=== PATIENT | female | born 1940 | race African-American/Black ===

== ENCOUNTER 2022-07-25 18:55 | Emergency (ER) | payer OTHER ==
[~2022-07-25] VITALS: Ht 172.7 cm; Wt 100.0 kg
[2022-07-25] MEDS ORDERED: HYDROMORPHONE HCL/PF 2MG/ML CPJ IV ONE (20:15)
[2022-07-25 20:44] LABS: BASOPHILS % 0.4 % (0.0-2.0); EOSINOPHILS % 1.4 % (0.0-5.0); HEMATOCRIT. 31.9 % (36.0-48.0); HEMOGLOBIN. 10.6 g/dL (12.0-16.0); LYMPHOCYTES % 23.6 % (20.0-50.0); MEAN CORPUSCULAR HEMOGLOBIN 30.4 pg (28.0-32.0); MEAN CORPUSCULAR VOLUME 91.6 fL (81.0-99.0); MEAN PLATELET VOLUME 7.5 fl (7.4-10.4); MONOCYTES % 5.6 % (2.0-8.0); PLATELET 291 x1000/uL (130-400); RED BLOOD CELL COUNT 3.48 mill/uL (4.2-5.4); RED CELL DISTRIBUTION WIDTH 14.4 % (11.6-14.6)
[2022-07-25 20:53] LABS: PROTHROMBIN TIME 11.2 sec (9.6-11.0)
[2022-07-25 20:54] LABS: CHLORIDE 106 mEq/L (98-107)
[2022-07-26] MEDS ORDERED: IOHEXOL-350 100 ML BOTTLE ONE (00:19)
[2022-07-26] MEDS ORDERED: ASPIRIN 325MG TABLET PO ONE (01:30)
[2022-07-26] MEDS ORDERED: ASPIRIN 325MG TABLET PO NR (03:45)
[2022-07-26 10:00] VITALS: BP 133/90
== END 2022-07-26 09:58 | disposition short-term general hospital (02) ==
LOC: ER 18:55 → CANBEDREQ 07-26 06:44 → ER 07-26 09:58
DX: R55 Syncope and collapse (principal); R07.9 Chest pain, unspecified; R42 Dizziness and giddiness; C79.81 Secondary malignant neoplasm of breast; E11.9 Type 2 diabetes mellitus without complications; I10 Essential (primary) hypertension; Z20.822 Contact with and (suspected) exposure to COVID-19; Z88.5 Allergy status to narcotic agent
CPT/HCPCS: 36415; 71045; 71275; 80053; 82962; 83880; 84484; 85025; 85610; 86850; 86900; 86901; 87426; 93005; 96374; 99285; C9803; J1170; Q9967